=== PATIENT | female | born 1970 | race Caucasian/White ===

== ENCOUNTER → 2021-07-03 | Outpatient (CLI) | payer OTHER ==
[~2021-07-03] MED LIST: ACAR50TA3 PO; ADVAIR INH; ALPR0.25 PO; APAP500T10 PO; BARI1CAP PO; CELE40TA PO; CETI-24 PO; CETI10TA OR; CHOL4PW PO; CINNAMON PO; CLAR5CHW OR; CLON0.2T PO; CLON0.3T OR; CLON0.3T PO; COLE625TAB PO; D3 S20002 PO; FERR325T OR; FLOM0.4C39 OR; FLOM0.4C39 PO; GNP200TA4 PO; LEVO125T4 PO; LEVOTAB10 PO; LEXA1TAB PO; LEXA1TAB2 PO; LISI10TA22 PO; LYRI75CA OR; MONT10TA10 PO; MULTIVIT OR; MYRB50TA PO; NEUR300C PO; OXYBUTIN TD; PANT40TA29 PO; PENNSAID TOP; PROT1TAB2 OR; RANI15TA PO; RANI300T OR; SOLI5TAB PO; TRAM50TA2 OR; TRAM50TA2 PO; VENL37.5 OR; VESI10TA PO; VESI5TAB2 PO; VITAMIN B COMPLE1 OR; VITMTA PO; VOLT1GEL EX; WELC3.75 PO; ZIPS25CA3 PO; ZOLO100T OR; [UNRECOGNIZED DRUG - OTHER]; enablex OR; trazadone PO
--- NOTE | 2021-07-03 15:09 | ECGEPIP ---
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
[2021-07-03 15:16] LABS: HEMATOCRIT 32.3 % (36.0-47.0); HEMOGLOBIN 10.7 g/dl (12.0-15.5); MEAN CORPUSCULAR HEMOGLOBIN 32.3 pg (27.0-33.0); MEAN CORPUSCULAR HGB CONC 33.1 g/dl (32.0-36.5); MEAN CORPUSCULAR VOLUME 97.6 fl (80.0-96.0); PLATELET COUNT, AUTOMATED 308 10^3/uL (150-450); RED BLOOD COUNT 3.31 10^6/uL (4.00-5.40); WHITE BLOOD COUNT 5.3 10^3/uL (4.0-10.0)
[2021-07-03 15:37] LABS: BLOOD UREA NITROGEN 9 MG/DL (7-18); CALCIUM LEVEL 8.3 MG/DL (8.5-10.1); CARBON DIOXIDE LEVEL 25 MEQ/L (21-32); CHLORIDE LEVEL 102 MEQ/L (98-107); CREATININE FOR GFR 0.97 MG/DL (0.55-1.30); GLOMERULAR FILTRATION RATE > 60.0 (>51); GLUCOSE, FASTING 92 MG/DL (70-100); POTASSIUM SERUM 4.8 MEQ/L (3.5-5.1); SODIUM LEVEL 136 MEQ/L (136-145)
== END ==
LOC: M LAB 14:30
PROVIDERS: ATTEND Specialist
DX: Z01.818 Encounter for other preprocedural examination (principal); R32 Unspecified urinary incontinence; N32.81 Overactive bladder
CPT/HCPCS: 36415; 80048; 85027; 93005; G0463

== ENCOUNTER 2021-07-08 06:27 | Day surgery (SDC) | payer OTHER ==
[~2021-07-08] VITALS: Ht 165.1 cm; Wt 75.3 kg
[2021-07-08] MEDS ORDERED: LR 1,000 ML IV ONE (06:40)
[2021-07-08] MEDS ORDERED: ceFAZolin SOD 2 GM in IV 1 EA IV ONE (06:40)
[2021-07-08] MEDS ORDERED: fentaNYL 250 MCG/5 ML INJECTION (J3010) As Ordered ONE (07:05)
[2021-07-08] MEDS ORDERED: ONDANSETRON 4MG/2ML VIAL As Ordered ONE (07:06)
[2021-07-08] MEDS ORDERED: KETOROLAC 60MG 2ML VIAL As Ordered ONE (07:06)
[2021-07-08] MEDS ORDERED: dexameTHASONE 4 MG/ML 1ML VIAL (J1100 PER 1MG) As Ordered ONE (07:06)
[2021-07-08] MEDS ORDERED: propofoL 200 MG/20 ML VIAL As Ordered ONE (07:06)
[2021-07-08] MEDS ORDERED: MIDAZOLAM INJ 2MG/2ML VIAL (J2250 PER 1MG) As Ordered ONE (07:06)
[2021-07-08] MEDS ORDERED: LIDOCAINE 2% 100MG/5ML SDV (FOR ANES.) As Ordered ONE (07:06)
[2021-07-08] MEDS ORDERED: LIDOCAINE 1% SDV 30ML VIAL As Ordered ONE (07:14)
[2021-07-08] MEDS ORDERED: SODIUM BICARBONATE 8.4% INJ 50MEQ 50 ML VIAL As Ordered ONE (07:14)
[2021-07-08] MEDS ORDERED: KETAMINE HCL 200 MG/20 ML VIAL As Ordered ONE (08:22)
--- NOTE | 2021-07-08 08:49 | REP ---
INDICATION: INTERSTIM STAGE 2 PLACEMENT. COMPARISON: None. TECHNIQUE: Two views. 26.2 seconds of fluoroscopy time is reported. FINDINGS: A sequence of 2 last image hold fluoroscopically obtained spot radiographs of the pelvis document neurostimulator placement procedure. IMPRESSION: Procedural imaging. <Electronically signed by Jernoimo Marie > 07/08/21 1618
--- NOTE | 2021-07-08 09:03 | ROOPDOC ---
[facility] Report Of Operation Report of Operation DATE OF PROCEDURE: 07/08/21 PREPROCEDURE DIAGNOSES: Urinary incontinence secondary to urge incontinence refractory to behavioral modification and medical management POSTPROCEDURE DIAGNOSES: Same PROCEDURE PERFORMED: Complete InterStim implantation with incision and implantation of the tined quadripolar lead electrodes into the left S3 foramen with fluoroscopic guidance for needle placement, subcutaneous implantation of sacral nerve neurostimulator with the rechargeable battery, and electronic analysis and programming SURGEON: Faina Couch MD ANESTHESIA: IV sedation ESTIMATED BLOOD LOSS: Approximately 5 mL. COMPLICATIONS: None FINDINGS: The patient had excellent movement of her first toe and also felt this in her left labia PROCEDURE NOTE: The patient has severe urinary urgency and urge incontinence which have been refractory to medical management and behavioral modification. Urodynamic studies also showed bladder instability with leakage and 64 mL. After discussing all different options, alternatives, risks, benefits we proceeded wi th an InterStim test in the office. The left lead was working best for her and it was decided to proceed with permanent implantation. The risks of the procedure were discussed including but not limited to the risks of general anesthesia, reactions to medications, infection, need for device recharging, problems with the lead or the battery, need to recharge the battery, pain, need for reprogramming. Informed consent was obtained in both verbal and written form. DESCRIPTION OF PROCEDURE: The patient was brought into the operating room and placed in the prone position. She had pillows placed under her pelvis and under her shins. Tape was placed so that we could see her anus. IV sedation was given and she was prepped and draped in the usual fashion. A special foramen needle was placed 2 cm above the sacral notch and 3 cm lateral on the left where the senior test analyst had been placed. Using fluoroscopy this was then placed through the S3 foramen. The depth of the needle was confirmed and adjusted fluoroscopically. The patient then identified the location of sensation which was in her labia. We also had direct observation of plantar flexion of the great toe. The foramen needle stylette was removed and a directional guide was placed and confirmed fluoroscopy. Lead introducer sheath and dilator was placed through the needle and the needle was removed. The lead was seen until 3 electrodes were visible below the sacrum. The electrode was tested for location and patient sensation, visualization of Neelima, and plantar flexion. An incision was then made into the subcutaneous tissue posterior to the iliac crest and lateral to the sacrum. Blunt dissection was continued until there was a pocket large enough for the Interstim battery. The tunneling tool with straw was placed from the lead exit site subcutaneously to the incised pocket. The tunneling tube was removed and the lead was fed through the straw and pulled out of the pocket site. The lead was cleansed of bodily fluid, dried and antibiotic irrigation was used. The lead was then inserted into the header of the InterStim neurostimulator until the blue tip was visualized at the distal window the single setscrew was tightened. The neurostimulator rechargeable battery was placed in the subcutaneous pocket with the edge identified side placed upwards. The programming head was placed over the implanted neurostimulator in a sterile cover to ensure adequate lead connection and the parameters with were within normal limits. Impedances were confirmed to be within normal limits. The wound was again irrigated with antibiotic solution and closed with 2-0 chromic subcuticulars sutures and 4-0 Monocryl skin sutures. Counts were correct. Steri- Strips and gauze was placed over the incision. The patient tolerated the procedure well. FAINA COUCH MD Jul 08, 2021 09:03
[2021-07-08 09:20] VITALS: BP 126/76
[2021-07-08] MEDS ORDERED: GLYCOPYRROLATE INJ 0.2 MG/ML 2 ML VIAL As Ordered ONE (09:26)
== END 2021-07-08 09:25 | disposition home or self-care (01) ==
LOC: M SDC 06:27
PROVIDERS: ATTEND Specialist
DX: R32 Unspecified urinary incontinence (principal); I73.9 Peripheral vascular disease, unspecified; E03.9 Hypothyroidism, unspecified; Z88.8 Allergy status to other drugs, medicaments and biological substances; Z79.899 Other long term (current) drug therapy; Z98.84 Bariatric surgery status; G43.909 Migraine, unspecified, not intractable, without status migrainosus; F41.9 Anxiety disorder, unspecified; F32.9 Major depressive disorder, single episode, unspecified; K21.9 Gastro-esophageal reflux disease without esophagitis
CPT/HCPCS: 64581; 64590; 76000; C1787; C1897; J0690; J2250; J2405; J3010

== ENCOUNTER → 2022-02-19 | Outpatient (REF) | payer OTHER ==
[~2022-02-19] MED LIST changes: -MONT10TA10 PO; +MONT10TA97 PO
== END ==
LOC: M SMT 12:47
PROVIDERS: ATTEND Specialist
DX: R32 Unspecified urinary incontinence (principal)
CPT/HCPCS: 87480; 87510; 87660; G0463

== ENCOUNTER 2025-05-24 06:21 | Day surgery (SDC) | payer OTHER ==
[~2025-05-24] VITALS: Ht 165.1 cm; Wt 95.4 kg
[~2025-05-24 06:21] MED LIST changes: +ALBU8.5H; +AMOX875T2 PO; +CIME200T40 PO; +COLE3.755 PO; +COLE625T17 PO; -COLE625TAB PO; +CREO24CA PO; +CYCL5TAB4 PO; +FERR325T3 PO; -FLOM0.4C39 PO; +FLUT1BLS8; +GABA-1172 PO; +GLYCOPYRROLATE INJ 0.2 MG/ML 2 ML VIAL As Ordered ONE; -GNP200TA4 PO; +LEVO100T5 PO; +LIDOCAINE 2% 100 MG/5 ML SDV (FOR ANES.) As Ordered ONE; +MAG100TA PO; +MIDAZOLAM INJ 2 MG/2 ML VIAL As Ordered ONE; +MULTTAB61 PO; +ONDANSETRON 4MG 2ML VIAL As Ordered ONE; +OXCA150T21 PO; +OYST500C PO; +PERCOCET PO; +ROCURONIUM BROMIDE 50MG/5ML VIAL As Ordered ONE; +SUGAMMADEX SODIUM 500 MG/5 ML VIAL As Ordered ONE; +TAMS-18 PO; +VITA500065 PO; -WELC3.75 PO; +ZIPS1CAP7 PO; -ZIPS25CA3 PO; +dexAMETHasone 4 MG/ML 1 ML VIAL As Ordered ONE; +fentaNYL 100 MCG/2 ML INJECTION As Ordered ONE; +propofoL 200 MG/20 ML VIAL As Ordered ONE
[2025-05-24] MEDS ORDERED: LR 1,000 ML IV SCH (06:25)
[2025-05-24] MEDS: LIDOCAINE 1% SDV 30 ML VIAL As Ordered ONE (07:06)
[2025-05-24] MEDS: ceFAZolin SOD 2 GM IV ONCE IV ONE (07:49)
[2025-05-24] MEDS ORDERED: ACETAMINOPHEN 1000MG/100ML IV BAG As Ordered ONE (07:58)
[2025-05-24] MEDS ORDERED: KETOROLAC 30 MG/ML 1 ML VIAL As Ordered ONE (08:19)
[2025-05-24] MEDS: GENTAMICIN SULF 80 MG/2 ML VIAL As Ordered ONE (08:39)
[2025-05-24 10:46] VITALS: BP 153/70; TEMP 97.5; O2SAT 97
== END 2025-05-24 10:50 | disposition home or self-care (01) ==
LOC: M SDC 06:21
PROVIDERS: ATTEND Specialist
DX: T85.193A Other mechanical complication of implanted electronic neurostimulator, generator, initial encounter (principal); R32 Unspecified urinary incontinence; N32.81 Overactive bladder; E03.9 Hypothyroidism, unspecified; E04.0 Nontoxic diffuse goiter; D64.9 Anemia, unspecified; K21.9 Gastro-esophageal reflux disease without esophagitis; Z79.51 Long term (current) use of inhaled steroids; F41.9 Anxiety disorder, unspecified; F32.A Depression, unspecified; G43.909 Migraine, unspecified, not intractable, without status migrainosus; Z79.899 Other long term (current) drug therapy; J45.909 Unspecified asthma, uncomplicated; Z86.711 Personal history of pulmonary embolism; Z88.8 Allergy status to other drugs, medicaments and biological substances
CPT/HCPCS: 64585; 64590; 76000; C1778; C1897; J0131; J0690; J1100; J1580; J1596; J1885; J2250; J2405; J3010

== ENCOUNTER → 2025-08-13 | Outpatient (REF) ==
[~2025-08-13] MED LIST changes: -GLYCOPYRROLATE INJ 0.2 MG/ML 2 ML VIAL As Ordered ONE; -LIDOCAINE 2% 100 MG/5 ML SDV (FOR ANES.) As Ordered ONE; -MIDAZOLAM INJ 2 MG/2 ML VIAL As Ordered ONE; -ONDANSETRON 4MG 2ML VIAL As Ordered ONE; -ROCURONIUM BROMIDE 50MG/5ML VIAL As Ordered ONE; -SUGAMMADEX SODIUM 500 MG/5 ML VIAL As Ordered ONE; -dexAMETHasone 4 MG/ML 1 ML VIAL As Ordered ONE; -fentaNYL 100 MCG/2 ML INJECTION As Ordered ONE; -propofoL 200 MG/20 ML VIAL As Ordered ONE
== END ==
LOC: M PLAIMG 13:44
PROVIDERS: ATTEND Internal Medicine
DX: R52 Pain, unspecified (principal)